=== PATIENT | female | born 1990 | race Asian ===

== ENCOUNTER 2021-12-24 04:59 | Emergency (ER) | payer OTHER ==
[~2021-12-24 04:59] MED LIST: ATARAX25 MG PO
[2021-12-24 05:57] LABS: BASOPHIL 0.4 % (0-2); EOSINOPHIL 0.1 % (0-5); HCT 39.9 % (37.0-47.0); HGB 13.3 g/dl (12.5-16.0); LYMPHOCYTE 17.5 % (15-48); MCH 29.8 pg (25.0-31.0); MCHC 33.3 g/dL (32.0-36.0); MCV 89.5 fL (78.0-100.0); MONOCYTE 3.2 % (0-12); MPV 9.1 fL (6.0-9.5); NEUTROPHIL 78.7 % (41-80); NRBC 0; PLT 376 K/uL (150-400); RBC 4.46 M/uL (4.20-5.40); RDW 11.9 % (11.5-14.0); WBC 7.2 K/uL (4.0-10.5)
[2021-12-24 06:23] LABS: ALBUMIN 4.4 g/dL (3.4-5.0); BILIRUBIN - TOTAL 0.3 mg/dL (0.2-1.0); BUN/CREAT RATIO (CALC) 21.6 RATIO; CREATININE 0.51 mg/dL (0.51-0.95); GLOBULIN (CALCULATION) 3.2 g/dL; POTASSIUM 4.2 mmol/L (3.5-5.1); TOTAL PROTEIN 7.6 g/dL (6.4-8.2)
[2021-12-24 06:57] LABS: BILIRUBIN NEGATIVE (NEGATIVE); BLOOD NEGATIVE Ery/uL (NEGATIVE); CLARITY CLEAR (CLEAR); COLOR YELLOW (YELLOW); GLUCOSE (U) NORMAL (NORMAL); LEUKOCYTES NEGATIVE Leu/uL (NEGATIVE); NITRITE NEGATIVE (NEGATIVE); PROTEIN NEGATIVE (NEGATIVE); UROBILINOGEN 0.2 mg/dL (0.2-1.0)
[2021-12-24] MEDS ORDERED: ANTIVERT25 MG PO (08:01)
[2021-12-24] MEDS ORDERED: ONDANSETRON ODT4 MG PO (08:01)
== END 2021-12-24 08:25 | disposition home or self-care (01) ==
LOC: FER 04:59
PROVIDERS: Emergency Medicine
DX: H81.10 Benign paroxysmal vertigo, unspecified ear (principal)
CPT/HCPCS: 36415; 70450; 80053; 81003; 85025; 93005; J2405; J7030